=== PATIENT | female | born 1985 | race Caucasian/White ===

== ENCOUNTER 2018-09-19 05:30 | Day surgery (SDC) | payer MEDICAID ==
[2018-09-16 10:38] LABS: BASOPHILS 0.3 % (0-2); EOSINOPHILS 0.7 % (0-7); HEMATOCRIT 43.3 % (36.0-48.0); HEMOGLOBIN 15.1 g/dL (12-16); IMMATURE GRANULOCYTES 0.1 % (0-5); LYMPHOCYTES 29.1 % (15-50); MCH 30.3 pg (26.0-34.0); MCHC 34.9 g/dL (31.0-37.0); MCV 86.8 fL (80.0-100.0); MEAN PLATELET VOLUME 9.2 fL (7.4-10.4); MONOCYTES 4.8 % (2-11); PLATELET COUNT 273 10x3/uL (130-400); RBC 4.99 10x6/uL (4.00-5.40); RDW 12.2 % (11.5-14.5); WBC 6.9 10x3/uL (4.8-10.8)
[2018-09-16 10:45] LABS: CALC OSMOLALITY 268 mosm/kg (275-300); CARBON DIOXIDE 29.3 mmol/L (21.0-32.0); CHLORIDE - SERUM 98 mmol/L (98-107); CREATININE - SERUM 0.9 mg/dL (0.6-1.3); GLUCOSE 122 mg/dL (74-106); POTASSIUM - SERUM 3.7 mmol/L (3.5-5.1); SODIUM 135 mmol/L (136-145); UREA NITROGEN 8 mg/dL (7-18); eGFR NON AFRICAN AMERICAN 75 mL/min (90-120)
[~2018-09-19] VITALS: Ht 162.6 cm; Wt 51.8 kg
[~2018-09-19 05:30] MED LIST: ALBUTEROL SULF8.5 GM INH; OMNICEF300 MG PO; PHENERGAN25 M1 PO; ULTRAM50 MG PO
[2018-09-19 05:48] LABS: HCG URINE NEGATIVE (NEGATIVE)
[2018-09-19 06:17] VITALS: BP 111/74; Ht 162.6 cm; Wt 51.8 kg
--- NOTE | 2018-09-19 10:00 | NUR ---
received by bed from recovery room, she is drowsy at this time but does repspond when asked for her name, birthday and allergies. SCD's on bilat and placed on pump. alanis cath to bedside drain with 50ml cloudy yellow urine noted. iv infusing per orders. she denies nausea and request ice water to drink. ice pack applied to abdomen, lab incision noted to be clean and dry and abdomen soft to touch, bowels sounds are
[2018-09-19 10:03] VITALS: BP 124/78
--- NOTE | 2018-09-19 10:30 | NUR ---
pt mother out to desk stating that her daughter is awake and in a lot of pain. this rn to bedside. pt crying uncontrollably, rates pain at 10/10. orders verififed and percocet given po. pt mother states that she has to leave now, she does leave a cell number where she can be called. lights dimmed per pt request, call light in reach.
--- NOTE | 2018-09-19 11:45 | NUR ---
to room to assess pt pain and she is resting soundly, no signs of pain/distress noted. left undisturbed at this time.
--- NOTE | 2018-09-19 13:20 | NUR ---
lunch tray taken to room, pt still sleeping, attempt to waken so that she can eat but she begins crying again and goes back to sleep. will allow her to rest, side rails remain up. alanis collection canister with 250ml cloudy urine
--- NOTE | 2018-09-19 15:30 | NUR ---
tordal 30mg given as scheduled, see emar. pt awake at this time and rates pain at 7/10. she does ask for a sprite, this is provided with ice. encouraged her to turn to side and off her back to increase comfort but she denies. side rails up x 2 with call light with in her reach.
--- NOTE | 2018-09-19 17:40 | NUR ---
UPON ENTERING ROOM PT SITTING UP IN BED ROCKING BACK AND FORTH CRYING, STATES THAT "CRAMPS" ARE "BAD" RATES PAIN AT 8-10/10, DENIES ANY RELIEF FROM TORDAL EVEN THOUGH SHE WAS ABLE TO REST/SLEEP FOR 1+HOUR AFTER IT WAS GIVEN. SHE REPORTS VOMITING BUT BLUE EMESIN BAG IF EMPTY, WHEN IT WAS EXPLAINED THAT MD WOULD BE CALLED FOR ANTI NAUSEA MED SHE SAYS IT WAS NOT THAT BAD AND DID NOT THINK SHE NEEDED ANYTHING TO TAKE FOR IT. ABOUT 75% OF CHICKEN BROTH HAS BEEN CONSUMED AND 3 PACKAGES OF CRACKERS. LARGE CUP OF ICE WITH LEMON TYONEK PER REQUEST. DENIES PAIN OR DISCOMFORT BEING FROM ALEXANDRA, TURNED TO LEFT SIDE PER SELF AFTER REQUEST MADE BY THIS [place]. PILL TO BACK FOR SUPPORT. COLLECTION CANISTER ON ALEXANDRA HAS 300ML YELLOW URINE STILL CLOUDY. SIDE RAILS UP X 2 WITH PHONE AND CALL LIGHT IN REACH.
--- NOTE | 2018-09-19 18:45 | NUR ---
REPORT GIVEN TO DR LOVE THAT PT STILL HAD ALEXANDRA IN PLACE DUE TO PT UNABLE TO STAY AWAKE, WHEN SHE DOES WAKE CARMELO OUT WITH PAIN THAT SHE RATE 10/10, PT HAS RECEIVED TORDAL X 2, PERCOCET AND JUST RECENTLY DEMEROL. NEW ORDERS RECEIVED TO D/C NASRIN NOW, SALINE LOCK IV AND EXPLAIN TO PT THAT DUE TO RISK OF DVT IF SHE DOES NOT GET UP WALKING LOVENOX WOULD BE STARTED. ALSO MD STATES TO HOLD PAIN MED AT THIS TIME, MAY GIVE 3RD DOSE OF TORDAL SCHEDULED.
--- NOTE | 2018-09-19 19:10 | NUR ---
BEDSIDE SHIFT REPORT RECEIVED FROM Moiz LEMUS RN. REC'D PT RESTING W/EYES CLOSED TO LEFT SIDE. OPENS EYES W/VERBAL STIMULUS. PAIN ASSESSED. PT REPORTS ABD PAIN 5/10. STATES "IT'S NOT TOO BAD." VITAL SIGNS OBTAINED. SEE FLOWSHEET. CONTINUED POC DISCUSSED W/PT TO INCLUDE EXPECTED DISCHARGE HOME WITHIN THE NEXT 2HRS. PT INFORMED OF DR POLO ORDERS FOR HER TO AMBULATE IN HALLS BEFORE SHE RECEIVES ANY FURTHER PAIN MEDICATION OTHER THAN SCHEDULE TORADOL AND IF PT DOESN'T AMBULATE, SUB Q LOVENOX WILL BE STARTED. PT VERBALIZES UNDERSTANDING AND AGREEABLE AT THIS TIME. IV SITE SALINE LOCKED. ALEXANDRA CATH D/C'D INTACT W/APPROX 825ML YELLOW URINE NOTED. PT HAS SCD WRAPS ON. CONNECTED TO PUMP AND PUMP IS ON AND FUNCTIONING. WHILE AT BEDSIDE, PT THROWS UP APPROX 30ML YELLOW-GREENISH EMESIS. CLEAN EMESIS BAG AND COLD CLOTH PROVIDED. PT QUESTIONS IF SHE MAY TAKE A WARM SHOWER IN A "LITTLE WHILE". PT INFORMED THAT SHE MAY. PLANS TO DISCHARGE DISCUSSED AGAIN AND PT VERBALZIES SHE WILL HAVE A RIDE TO DRIVE HER HOME. PT INFORMED THIS RNW ILL OBTAIN AN ORDER FOR NAUSEA MEDICATION. PT DENIES FURTHER NEEDS AT THIS TIME. LIGHTS TURNED BACK DOWN. BED LOW,SIDE RAILS UP X 2. CALL LIGHT AND PHONE AT PT'S SIDE.
[2018-09-19 19:15] VITALS: BP 122/68
--- NOTE | 2018-09-19 19:52 | NUR ---
THIS RN TO BEDSIDE TO ADMIN ZOFRAN. PT REMAINS TO LEFT SIDE W/EYES CLOSED.EASY TO AROUSE. ZOFRAN 4 MG SIVP PUSH ADMINISTERED W/10ML NS FLUSH FOLLOWED. TEACHING PROVIDED. NO COMPLAINTS OR NEEDS AT THIS TIME.
--- NOTE | 2018-09-19 20:30 | NUR ---
THIS RN TO BEDSIDE TO ENCOURAGE PT TO GET UP AND AMBULATE. PT IS AGREEABLE TO DOING SO. EXTRA GOWN AND SOCKS PROVIDED. SCD WRAPS REMOVED. PT OOB W/OUT ASSISTANCE. AMBULATES IN JAIMES X 1. RETURNS TO BED. NO COMPLAINTS AT THIST LATRELL. INFORMED SHE DOES HAVE A REGULAR DINNER TRAY TO EAT WHEN SHE IS READY. PT DECLINES AT THIS TIME. BED LOW, SIDE RAILS UPX 2. CALL LIGHT AND PHONE AT PT'S SIDE.
--- NOTE | 2018-09-19 21:10 | NUR ---
DR LOVE CALLS UNIT REQUESTING UPDATE. REPORT GIVEN.
--- NOTE | 2018-09-19 21:20 | NUR ---
THIS RN TO BEDSIDE TO ADMIN SCHEDULED TORADOL 30MG SIVP. PT TO RT SIDE W/EYES CLOSED. OPENS THEM SPONTANEOUSLY W/VERBAL STIMULUS. PAIN ASSESSED. RATES PAIN 5/10. PT ABLE TO REST COMFORTABLY. SALINE LOCK FLUSHED W/5ML NS. 30MG TORADOL DILUTED IN 3ML NS GIVEN SIVP. SALINE LOCK FLUSHED W/10ML NS. SITE WNL. PT INFORMED THIS RN WILL RETURN TO BEDSIDE IN APPROX 15-30 MINS TO GET PT UP TO SHOWER IF SHE IS MORE AWAKE. PT IS AGREEABLE, BUT DOSES OFF AGAIN.
--- NOTE | 2018-09-19 21:41 | NUR ---
pt wishing to get up to void. out of bed w/out assistance. able to void. blech and pass gas.
--- NOTE | 2018-09-19 21:45 | NUR ---
PT DESIRES TO BE DISCHARGED HOME. THIS RN TO ROOM TO ASSESS PT'S ABILITY TO VOID. PT ABLE TO VOID APPROX 350ML URINE. DENIES NAUSEA. REPORTS TORADOL HELPED WITH HER PAIN.
--- NOTE | 2018-09-19 22:00 | NUR ---
DISCHARGE TEACHING PROVIDED. EDUCATION INFO PROVIDED AND TEACHING GIVEN. PT ABLE TO TELL THIS RN WHAT PROCEDURE SHE HAD AND VERBALZIES UNDERSTANDING OF DISCHARGE TO INCLUDE PAIN MEDICATION TEACHING. PRESCRIPTIONS FOR MOTRIN 800MG PO AND PERCOCET 7.5MG PO GIVEN W/TEACHING. SCHEDULED FOLLOW APPT CARD PROVIDED W/DATE OF OCTOBER 04 AT 1100. PT'S SALINE LOCK DISCONTINUED INTACT. BAND AID PLACED OVER SITE. PT DENIES QUESTIONS. PT UP TO DRESS FOR DISCHARGE. SIG OTHER AND FRIEND HERE TO DRIVE PT HOME. PT HAS NOT BEEN MEDICATED W/NARCOTICS GREATER THAN 6 HRS.
--- NOTE | 2018-09-19 22:11 | NUR ---
PT DISCHARGED HOME. AMBULATORY OFF UNIT AT THIS TIME IN STABLE CONDITION W/SIG OTHER AND FRIEND.
--- NOTE | 2018-09-21 13:09 | OP ---
PATIENT NAME: DEMETRIUS DANIEL MEDICAL RECORD: [id number] :81 LOCATION:D.OPS ADMISSION DATE: SURGEON: NATHAN LOVE MD DATE OF OPERATION: 09/19/2018 PREOPERATIVE DIAGNOSES: 1. Dysfunctional uterine bleeding. 2. History of endometriosis. POSTOPERATIVE DIAGNOSES: 1. Dysfunctional uterine bleeding. 2. Active endometriosis. PROCEDURES: 1. Diagnostic laparoscopy. 2. Fulguration of endometriosis. 3. Total laparoscopic hysterectomy. 4. Left oophorectomy. SURGEON: Nathan Love MD DRYER OPERATOR: Dr. Thomas. ANESTHESIOLOGIST: Dr. Mariee. ANESTHESIA: General. FINDINGS: The uterus has active endometriosis implants on the posterior serosa. There is also active lesion in the left posterior broad ligament. Left ovary has active endometriosis. Right ovary is unremarkable. SPECIMEN REMOVED 1. Left ovary. 2. Uterus with cervix. SPECIMEN DISPOSITION: All specimens to pathology. ESTIMATED BLOOD LOSS: Less than or equal to 75 cc. FLUIDS: 1700 cc lactated Ringer's. URINE OUTPUT: 100 cc of clear urine. COMPLICATIONS: None. DRAINS: Vicente to gravity discontinued on the floor. INDICATIONS: The patient is a 33-year-old female with known history of endometriosis. The patient has had heavy periods as well as dysmenorrhea. The patient consented for total laparoscopic hysterectomy and any indicated procedure. DESCRIPTION OF PROCEDURE: After informed consent was assured, the patient was taken to the operating room where anesthetic was obtained. [facility] and prepped and draped. Uterine manipulator was OPERATIVE REPORT [id number] DEMETRIUS DANIEL inserted and attention was directed to the abdomen. The incision at the umbilicus was made and a 5-mm trocar inserted. The accessory ports were 5-mm ports placed in the right and left lower quadrants. 0.25% Marcaine without epinephrine was injected in the sites. With the uterus deviated to the right of midline, the left ovary is elevated and using Thunderbeat coagulation cutter, the infundibulopelvic ligament was sealed and cut. The dissection was carried out underneath the left ovary across the round ligaments and the bladder flap developed to the midline. Posteriorly, the tissues were dissected free of the left vascular bundle and then the vascular bundle was now compressed, coagulated, and . Attention was now directed to the right side. The uterine ovarian ligament was compressed, coagulated, and and the dissection was carried out over the round ligament. The anterior leaf of the broad ligament was opened and the bladder flap now fully developed. The posterior leaf was opened. The vessels of the right side, compressed, coagulated, and skeletonized. Attention was redirected to the left side where the coagulation cutter now uses to ensure the vaginal vault. The dissection was carried out over the top of the V cup from the 9 to the 6 o'clock position and then from the 9 to the 11 o'clock position. The coagulation cutter is now passed into the right port and with this device, the dissection was completed from the 6 to the 11 o'clock positions. Uterus is now pulled into the vaginal vault and the ovaries placed in the vault with the uterine specimen. Pneumoperitoneum was maintained as the pelvis was irrigated, irrigant removed. Bleeding vessels of the posterior cuff cauterized. The pneumoperitoneum was now released entirely and the ports covered. The legs were positioned for the close. A weighted speculum was introduced and the vaginal cuff is closed in horizontal fashion. Initial stitches were right and left lateral to the cuff incorporating the uterosacral ligaments into the vaginal close. Two more interrupted stitches were placed to the right and left of midline with reapproximating the tissue and adequate hemostasis. Pneumoperitoneum was now reestablished and visualization of the pelvis reveals adequate hemostasis. A portion of endometriosis on the left of midline is identified, elevated, and coagulated. Pelvis again was copiously irrigated, irrigant removed. Adequate hemostasis has been achieved and the pneumoperitoneum was released. Sponge, lap, needle counts were correct times 2. The accessory trocars were removed under direct visualization. The right and left lower quadrant port sites were closed with subcuticular stitch. The primary port is now removed and that port site closed. Dermabond covers the incisions. The patient was awakened and went to the recovery room in stable condition. TRANSINT:[id number] Voice Confirmation ID: [id number] DOCUMENT ID: [id number] NATHAN LOVE MD at 1309 CC: [id number] DICTATION DATE: 09/19/18912 UNIT TRUST MANAGER: 09/19/18 1203 [facility] 09/19/18 [facility] [address] [place] [address]
== END 2018-09-19 22:14 | disposition home or self-care (01) ==
LOC: D.OPS 05:30 → D.PAN 07:30 → D.LD 09:43 → D.OPS 22:14
PROVIDERS: ATTEND Obstetrics & Gynecology
DX: N93.8 Other specified abnormal uterine and vaginal bleeding (principal); N80.9 Endometriosis, unspecified